=== PATIENT | female | born 1945 | race Two or more races ===

== ENCOUNTER → 2017-12-15 | Outpatient (CLI) | payer OTHER | END | disposition home or self-care (01) | LOC: SONOGRAMA 09:59 | DX: E04.2 Nontoxic multinodular goiter (principal) ==

== ENCOUNTER 2022-08-28 11:39 | Outpatient (CLI) | payer OTHER | END 2022-08-28 11:42 | disposition home or self-care (01) | LOC: SONOGRAMA 11:39 | PROVIDERS: ATTEND Pathology Anatomic Pathology & Clinical Pathology | DX: D34 Benign neoplasm of thyroid gland (principal) ==